=== PATIENT | male | born 1990 | race Caucasian/White ===

== ENCOUNTER 2018-05-26 00:12 | Emergency (ER) | payer OTHER ==
[2018-05-26] MEDS: HYDROCODONE/APAP (10/325) TAB PO (03:09)
[2018-05-26] MEDS: KETOROLAC 30 MG INJ IM (03:09)
== END 2018-05-26 04:59 | disposition home or self-care (01) ==
LOC: FTE 00:12
DX: S93.401A Sprain of unspecified ligament of right ankle, initial encounter (principal); W01.0XXA Fall on same level from slipping, tripping and stumbling without subsequent striking against object, initial encounter; Y92.410 Unspecified street and highway as the place of occurrence of the external cause
CPT/HCPCS: 73610; 73610-RT; 73630; 96372; 99284-25